=== PATIENT | female | born 1970 | race African-American/Black ===

== ENCOUNTER 2024-10-16 19:00 | Emergency (ER) | payer OTHER ==
[~2024-10-16 19:00] MED LIST: DIPH-1243 PO; LURA80TA2 PO
[2024-10-17] MEDS ORDERED: ASEN5TAB8 SL ×2 (04:22→05:18)
== END 2024-10-16 19:30 | disposition left against medical advice (07) ==
LOC: EMS 19:00
DX: Z00.8 Encounter for other general examination (principal); Z53.21 Procedure and treatment not carried out due to patient leaving prior to being seen by health care provider

== ENCOUNTER 2024-10-17 00:37 | Emergency (ER) | payer OTHER ==
[~2024-10-17] VITALS: Ht 165.1 cm; Wt 132.0 kg
[2024-10-17 00:51] VITALS: BP 119/64; PULSE 63; RESP 20; TEMP 98.1; O2SAT 98
[2024-10-17] MEDS ORDERED: ASEN5TAB8 SL ×2 (04:22→05:18)
== END 2024-10-17 03:00 | disposition left against medical advice (07) ==
LOC: EMS 00:39
DX: Z76.0 Encounter for issue of repeat prescription (principal); Z53.21 Procedure and treatment not carried out due to patient leaving prior to being seen by health care provider

== ENCOUNTER 2024-10-17 04:11 | Emergency (ER) | payer OTHER ==
[~2024-10-17] VITALS: Ht 167.6 cm; Wt 60.0 kg
[2024-10-17] MEDS ORDERED: ASEN5TAB8 SL ×2 (04:22→05:18)
[2024-10-17 06:00] VITALS: BP 123/71; PULSE 69; RESP 18; TEMP 97.3; O2SAT 99
== END 2024-10-17 07:04 | disposition home or self-care (01) ==
LOC: EMS 04:12
DX: F20.9 Schizophrenia, unspecified (principal); Z76.0 Encounter for issue of repeat prescription; F17.210 Nicotine dependence, cigarettes, uncomplicated; Z88.1 Allergy status to other antibiotic agents; Z90.49 Acquired absence of other specified parts of digestive tract
CPT/HCPCS: 99281; Z7502

== ENCOUNTER 2024-11-03 18:02 | Emergency (ER) | payer OTHER ==
[~2024-11-03] VITALS: Ht 160 cm; Wt 55.1 kg
[~2024-11-03 18:02] MED LIST changes: +ASEN5TAB8 SL; -DIPH-1243 PO; -LURA80TA2 PO
[2024-11-03 18:30] VITALS: TEMP 97.1
[2024-11-03 22:25] LABS: EOSINOPHILS % (AUTO) 2.4 % (1.0-6.0); HEMATOCRIT 41.5 % (36-46); HEMOGLOBIN 13.9 g/dL (12.0-16.0); LYMPHOCYTES # (AUTO) 2.7 K/uL (1.0-4.8); LYMPHOCYTES % (AUTO) 35.6 % (22.0-44.0); MEAN CORPUSCULAR HEMOGLOBIN 26.5 pg (26.0-34.0); MEAN CORPUSCULAR HGB CONC 33.5 G/dL (31.0-37.0); MEAN CORPUSCULAR VOLUME 79 fL (80-100); MONOCYTES # (AUTO) 0.6 K/uL (0.1-1.0); MONOCYTES % (AUTO) 8.1 % (2.0-9.0); NEUTROPHILS % (AUTO) 52.9 % (40.0-70.0); PLATELET COUNT (AUTO) 234 K/uL (150-450); RED BLOOD CELL COUNT(AUTO) 5.26 MIL/uL (4.00-5.20); RED CELL DISTRIBUTION WIDTH 17.9 % (11.5-14.5); WHITE BLOOD COUNT (AUTO) 7.5 K/uL (4.5-11.0)
[2024-11-03 22:30] LABS: ANION GAP 7 mmol/L (8-16); CALCIUM, TOTAL 8.8 mg/dL (8.8-10.5); CARBON DIOXIDE 28 mmol/L (22-29); CHLORIDE 103 mmol/L (98-107); CREATININE 0.81 mg/dL (0.60-1.30); GLOMERULAR FILTR. RATE CALC > 60 mL/min (>60); GLUCOSE,RANDOM 80 mg/dL (70-110); POTASSIUM 3.9 mmol/L (3.5-5.1); SODIUM SERUM 138 mmol/L (136-145); UREA NITROGEN, BLOOD 8 mg/dL (7-18)
[2024-11-03 23:49] LABS: COVID AG,FIA SOURCE NASAL SWAB
[2024-11-04 00:18] LABS: SARS-COV2 (COVID) ANTIGEN,FIA Negative (Negative)
[2024-11-04] MEDS: DiphenhydrAMINE HCL 25 MG CAPSULE PO ONE (02:19)
[2024-11-04] MEDS: OLANZapine 10 MG TABLET PO ONE (02:20)
[2024-11-04 05:22] VITALS: BP 127/77; PULSE 66; RESP 14; O2SAT 98
== END 2024-11-04 07:02 | disposition home or self-care (01) ==
LOC: EMS 18:02
DX: F20.9 Schizophrenia, unspecified (principal); F31.9 Bipolar disorder, unspecified; F17.210 Nicotine dependence, cigarettes, uncomplicated; Z90.49 Acquired absence of other specified parts of digestive tract; Z88.1 Allergy status to other antibiotic agents; Z91.011 Allergy to milk products; Z77.29 Contact with and (suspected) exposure to other hazardous substances; Z20.822 Contact with and (suspected) exposure to COVID-19
CPT/HCPCS: 99283; 87426; 80048; 85025; 36415; G0480